=== PATIENT | male | born 1960 | race Caucasian/White ===

== ENCOUNTER 2017-02-10 05:42 | Inpatient (IN) | payer BC, OTHER ==
[2017-02-10] VITALS (18 sets, daily range): BP systolic 116–151; BP diastolic 60–86; PULSE 60–93; RESP 16–22; Ht 177.8 cm; Wt 100.7 kg
[~2017-02-10] VITALS: Ht 177.8 cm; Wt 100.7 kg
[~2017-02-10 05:42] MED LIST: ALBU8.5H3 INH; AMLO1TAB86 PO; SIMV5TAB50 PO
[2017-02-10] MEDS ORDERED: GLYCOPYRROLATE 1 MG INJ ONE (06:12)
[2017-02-10] MEDS ORDERED: PROPOFOL 20 ML ONE (06:12)
[2017-02-10] MEDS ORDERED: MIDAZOLAM 1 MG/ML 2 ML INJ ONE (06:12)
[2017-02-10] MEDS ORDERED: LIDOCAINE 2% (SDV) 5 ML INJ ONE (06:12)
[2017-02-10] MEDS ORDERED: ROCURONIUM 50 MG INJ ONE (06:12)
[2017-02-10] MEDS ORDERED: FENTAnyl 50 MCG/ML VIAL ONE (06:12)
[2017-02-10] MEDS ORDERED: NEOSTIGMINE 3 MG/3 ML SYRINGE ONE (06:12)
[2017-02-10] MEDS ORDERED: DEXAMETHASONE 4 MG/ML 1 ML INJ ONE (06:13)
[2017-02-10] MEDS ORDERED: SUGAMMADEX SODIUM 200 MG/2 ML VIAL IV ONE (06:13)
[2017-02-10] MEDS ORDERED: ONDANSETRON 4 MG INJ ONE (06:13)
[2017-02-10] MEDS ORDERED: ZOLP10TA PO (06:17)
[2017-02-10] MEDS ORDERED: LANS30CA PO (06:17)
[2017-02-10] MEDS ORDERED: AZEL205.2 NASAL (06:17)
[2017-02-10] MEDS ORDERED: GABA300C PO (06:17)
[2017-02-10] MEDS ORDERED: MELO-210 PO (06:17)
[2017-02-10] MEDS ORDERED: ROPIVACAINE 0.5 % 30 ML VIAL ONE ×2 (06:26→09:45)
[2017-02-10] MEDS ORDERED: CEFAZOLIN 1 GM INJ ONE ×2 (06:27→07:00)
[2017-02-10] MEDS ORDERED: ONDANSETRON 4 MG INJ IV PRN ×2 (06:30→07:00)
[2017-02-10] MEDS ORDERED: EPHEDrine SULFATE 50 MG/5 ML SYG IV PRN (06:30)
[2017-02-10] MEDS ORDERED: MIDAZOLAM 1 MG/ML 2 ML INJ IV PRN (06:30)
[2017-02-10] MEDS ORDERED: ATROPINE 1 MG/10 ML SYRINGE IV PRN (06:30)
[2017-02-10] MEDS ORDERED: LABETALOL HCL 20MG INJ IV PRN (06:30)
[2017-02-10] MEDS ORDERED: HYDROmorphONE (0.2 MG/ML) 10ML SYG IV PRN ×3 (06:30)
[2017-02-10] MEDS ORDERED: OXYCODONE/ACETAMINOPHEN (5/325) TAB PO PRN ×3 (06:30→07:00)
[2017-02-10] MEDS ORDERED: hydrALAzine 20 MG INJ IV PRN (06:30)
[2017-02-10] MEDS ORDERED: DIPHENHYDRAMINE 50 MG INJ IV PRN (06:30)
[2017-02-10] MEDS ORDERED: morphine (1 MG/ML) 10ML SYRINGE IV PRN ×3 (06:30)
[2017-02-10] MEDS ORDERED: MEPERIDINE 25 MG INJ IV PRN (06:30)
[2017-02-10] MEDS ORDERED: FENTAnyl 50 MCG/ML VIAL IV PRN ×2 (06:30)
--- NOTE | 2017-02-10 06:51 | HPN ---
Date/Time of Note Date/Time of Note DATE: 02/10/17 TIME: 06:51 Interval H&P Admission Note Pt. seen H&P reviewed: No system changes HAL OLEA MD Feb 10, 2017 06:51
[2017-02-10] MEDS: SOD CHLORIDE 0.9% 1,000 ML IV SCH ×3 (06:52→20:50)
[2017-02-10] MEDS ORDERED: SUCCINYLCHOLINE CHLORIDE 100 MG/5 ML SYG IV ONE (07:00)
[2017-02-10] MEDS ORDERED: morphine 10 MG INJ IV PRN (07:00)
[2017-02-10] MEDS ORDERED: DIPHENHYDRAMINE 25 MG CAP PO PRN (07:00)
[2017-02-10] MEDS ORDERED: CEFAZOLIN 1 GM INJ IV SCH (07:00)
[2017-02-10] MEDS ORDERED: BISACODYL 10 MG SUPP PR PRN (07:00)
[2017-02-10] MEDS: SENNA/DOCUSATE NA (8.6MG/50MG) TAB PO SCH ×2 (09:00→20:49)
[2017-02-10] MEDS ORDERED: POLYMYXIN/BACITRACIN 1L IRRIG ONE (09:45)
[2017-02-10] MEDS ORDERED: POVIDONE IODINE 10% 28.4 GM OINT ONE (09:45)
--- NOTE | 2017-02-10 11:52 | OPPN ---
Date/Time of Note Date/Time of Note DATE: 02/10/17 TIME: 11:51 Operative Report Preoperative Diagnosis Right Ankle Osteoarthritis Postoperative Diagnosis Same Operation/Procedure Performed Right ankle arthroscopic ankle fusion Surgeon Sagar Olea fire control assistant Luis Rivas Anesthesia: general Estimated blood loss: 10 - 50 ml's Transfusion Required none Specimen none Grafts/Implants none Complications none SAGAR OLEA MD Feb 10, 2017 11:52
--- NOTE | 2017-02-10 11:52 | OPPN ---
Date/Time of Note Date/Time of Note DATE: 02/10/17 TIME: 11:51 Operative Report Preoperative Diagnosis Right Ankle Osteoarthritis Postoperative Diagnosis Same Operation/Procedure Performed Right ankle arthroscopic ankle fusion Surgeon Sagar Olea kindergarten assistant Luis Rivas Anesthesia: general Estimated blood loss: 10 - 50 ml's Transfusion Required none Specimen none Grafts/Implants none Complications none SAGAR OLEA MD Feb 10, 2017 11:52
--- NOTE | 2017-02-10 11:52 | OPPN ---
Date/Time of Note Date/Time of Note DATE: 02/10/17 TIME: 11:51 Operative Report Preoperative Diagnosis Right Ankle Osteoarthritis Postoperative Diagnosis Same Operation/Procedure Performed Right ankle arthroscopic ankle fusion Surgeon Sagar Olea assistant pastry chef Luis Rivas Anesthesia: general Estimated blood loss: 10 - 50 ml's Transfusion Required none Specimen none Grafts/Implants none Complications none SAGAR OLEA MD Feb 10, 2017 11:52
[2017-02-10] MEDS: CEFAZOLIN 1 GM/50 ML (PMX) 50 ML IVPB SCH ×2 (12:40→18:49)
[2017-02-10] MEDS: HYDROmorphONE 0.2 MG/ML PCA IV SCH ×2 (12:43→12:44)
--- NOTE | 2017-02-10 16:01 | RADRPT ---
PROCEDURE: Intraoperative imaging of the right ankle with fluoroscopy. CLINICAL INDICATION: Right ankle pain. Intraoperative. TECHNIQUE: Four images of the right ankle were obtained in the operating room with an image intens ifier. No radiologist was in attendance. Fluoroscopy time is 0.6 minutes . COMPARISON: No prior study is available for comparison. FINDINGS: Surgical instruments are noted overlying the right ankle. Images demonstrate fusion with 2 cannulated screws traversing the distal tibia and fibula, extending into the talus. IMPRESSION: 1. Intraoperative imaging of the right ankle. RPTAT: QQ .Christian Paz MD, MD Date Time Electronically viewed and signed by .Christian Paz MD, on 02/10/2017 16:00 .R/
[2017-02-11 00:22] VITALS: BP 120/64; RESP 19
[2017-02-11] MEDS: CEFAZOLIN 1 GM/50 ML (PMX) 50 ML IVPB SCH ×2 (02:02→11:38)
--- NOTE | 2017-02-11 04:46 | OPR ---
DATE OF OPERATION: 02/10/2017 PREOPERATIVE DIAGNOSIS: Severe degenerative joint disease of the right ankle. POSTOPERATIVE DIAGNOSES: 1. Severe degenerative joint disease, right ankle. 2. Extensive fibrosis and synovitis. OPERATION PERFORMED: 1. Arthroscopy, right ankle, with soft tissue distraction. 2. Extensive debridement of the ankle and removal of all arthritic debris and surfaces. 3. Insertion of Ignite and augment bone graft supplement into the ankle. 4. Arthrodesis of the right ankle with two 7.3 AO cannulated screws. 5. Use of fluoroscopy to verify position and alignment of the screws and the position of the ankle. 6. Short-leg cast. SURGEON: Hal Olea MD. CHRISTMAS TREE GRADER: Luis Rivas MD. ANESTHESIA: General with popliteal block. TOURNIQUET TIME: 135 minutes. DESCRIPTION OF PROCEDURE: The patient taken to the operating room, placed in supine position. Sati sfactory popliteal block was given, satisfactory general anesthesia administered, 2 grams Ancef give n intravenously. The right thigh secured in the thigh hopper and was carefully padded and right leg was prepped and draped in usual manner. Superficial peroneal nerve was marked out. Standard anter omedial, anterolateral and posterolateral portals were used, using extreme caution. Extensive fibro sis and synovitis throughout the ankle. 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 Shaver was inserted and the medial gutter w as debrided. The soft tissue peeled off the distal tibia and spurs were removed with a bur along th e anterior distal tibia, lateral gutter and anterior gutters were debrided and the posterior gutters were debrided as well. A shaver and curettes were used to remove all articular cartilage off the t alus. A bur was used to remove approximately 1 mm of bone to get good bleeding surfaces throughout the entire talus. Multiple "spot welds" were made with the helga to facilitate bleeding. Multiple d rill holes were made with 0.062 K-wire to facilitate bleeding. After the talus was adequately prepa red, the tibia was prepared in the same way. The articular cartilage was removed with curettes and shaver. A helga was used to remove the appropriate amount of bone and then spot welds were made and the holes were drilled. The medial and lateral gutters were prepared in exactly the same way and th en the posterior gutter through the posterolateral portal was prepared the same way. After we had g ood bleeding surfaces throughout the entire ankle, it was time to put the screws in. The Micro Vector was inserted medially through the anteromedial portal with the appropriate angulati on. The skin was marked, incision made over the medial malleolus. Dissection carried down to subcu taneous tissue. The saphenous nerve and vein were moved out of the field. Guide pin was inserted f rom the 7.3 AO cannulated screw set approximately 30 degrees in the coronal and sagittal planes, but it did not penetrate through the tibia. Guide pin was then marked on the fibula, insertion was mad e through the previous incision. The dissection carried down to subcutaneous tissue. The peroneal sheath was opened, protected and guide pin was inserted in the posterolateral aspect of the fibula i n appropriate angle with the Micro Vector. AP and lateral radiographs and the fluoroscope was used to check, excellent position that was obtained. The wounds were then closed with 3-0 black nylon ex cept the medial wound. The medial wound was then used to insert the combination of Ignite and augme nt into the wound throughout the fusion site to facilitate healing. The wound was then closed anter omedially. Ankle was then placed in slight valgus and neutral dorsi and plantarflexion. Medial scr ew was advanced above the subtalar joint. It was measured, partially drilled and then a 7.3 AO josh ulated screw was inserted. Excellent fixation was obtained. The lateral screw was also measured, p artially drilled and then inserted. Excellent fixation was obtained as well. Final fluoroscopic vi ew showed good position and alignment of the screws and the subtalar joint was intact and the ankle was positioned appropriately. The tourniquet was then released, bleeders were coagulated, wounds ir rigated with antibiotic and wounds were closed with 3-0 undyed Vicryl and 3-0 and 4-0 black nylon. Compression dressing was applied after a saphenous nerve block done with 0.5% ropivacaine. Short-le g cast was then applied in neutral position. At the end of procedure, sponge and needle count was c orrect. The patient tolerated the procedure well and the cast was split in the recovery room. VOICE AND DATA TECHNICIAN ORTHOPEDIC SURGEON: During the procedure, an communications assistant orthopedic surgeon was used at my request. The communications assistant helped with distraction of the ankle. Also, the communications assistant cortically helped with inserting the guide pins while I held the ankle in appropriate position. The communications assistant then i nserted the screws while I held the ankle in appropriate position. Without a skilled orthopedic amy geon assisting me, this could not be done; therefore, should be compensated appropriately. Dictated By: HAL OLEA MD RF/ANNIE Conf#: [id number] DID#: [id number]
--- NOTE | 2017-02-11 04:46 | OPR ---
DATE OF OPERATION: 02/10/2017 PREOPERATIVE DIAGNOSIS: Severe degenerative joint disease of the right ankle. POSTOPERATIVE DIAGNOSES: 1. Severe degenerative joint disease, right ankle. 2. Extensive fibrosis and synovitis. OPERATION PERFORMED: 1. Arthroscopy, right ankle, with soft tissue distraction. 2. Extensive debridement of the ankle and removal of all arthritic debris and surfaces. 3. Insertion of Ignite and augment bone graft supplement into the ankle. 4. Arthrodesis of the right ankle with two 7.3 AO cannulated screws. 5. Use of fluoroscopy to verify position and alignment of the screws and the position of the ankle. 6. Short-leg cast. SURGEON: Hal Olea MD. POWDER BLENDER: Luis Rivas MD. ANESTHESIA: General with popliteal block. TOURNIQUET TIME: 135 minutes. DESCRIPTION OF PROCEDURE: The patient taken to the operating room, placed in supine position. Sati sfactory popliteal block was given, satisfactory general anesthesia administered, 2 grams Ancef give n intravenously. The right thigh secured in the thigh hopper and was carefully padded and right leg was prepped and draped in usual manner. Superficial peroneal nerve was marked out. Standard anter omedial, anterolateral and posterolateral portals were used, using extreme caution. Extensive fibro sis and synovitis throughout the ankle. 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 Shaver was inserted and the medial gutter w as debrided. The soft tissue peeled off the distal tibia and spurs were removed with a bur along th e anterior distal tibia, lateral gutter and anterior gutters were debrided and the posterior gutters were debrided as well. A shaver and curettes were used to remove all articular cartilage off the t alus. A bur was used to remove approximately 1 mm of bone to get good bleeding surfaces throughout the entire talus. Multiple "spot welds" were made with the helga to facilitate bleeding. Multiple d rill holes were made with 0.062 K-wire to facilitate bleeding. After the talus was adequately prepa red, the tibia was prepared in the same way. The articular cartilage was removed with curettes and shaver. A helga was used to remove the appropriate amount of bone and then spot welds were made and the holes were drilled. The medial and lateral gutters were prepared in exactly the same way and th en the posterior gutter through the posterolateral portal was prepared the same way. After we had g ood bleeding surfaces throughout the entire ankle, it was time to put the screws in. The Micro Vector was inserted medially through the anteromedial portal with the appropriate angulati on. The skin was marked, incision made over the medial malleolus. Dissection carried down to subcu taneous tissue. The saphenous nerve and vein were moved out of the field. Guide pin was inserted f rom the 7.3 AO cannulated screw set approximately 30 degrees in the coronal and sagittal planes, but it did not penetrate through the tibia. Guide pin was then marked on the fibula, insertion was mad e through the previous incision. The dissection carried down to subcutaneous tissue. The peroneal sheath was opened, protected and guide pin was inserted in the posterolateral aspect of the fibula i n appropriate angle with the Micro Vector. AP and lateral radiographs and the fluoroscope was used to check, excellent position that was obtained. The wounds were then closed with 3-0 black nylon ex cept the medial wound. The medial wound was then used to insert the combination of Ignite and augme nt into the wound throughout the fusion site to facilitate healing. The wound was then closed anter omedially. Ankle was then placed in slight valgus and neutral dorsi and plantarflexion. Medial scr ew was advanced above the subtalar joint. It was measured, partially drilled and then a 7.3 AO josh ulated screw was inserted. Excellent fixation was obtained. The lateral screw was also measured, p artially drilled and then inserted. Excellent fixation was obtained as well. Final fluoroscopic vi ew showed good position and alignment of the screws and the subtalar joint was intact and the ankle was positioned appropriately. The tourniquet was then released, bleeders were coagulated, wounds ir rigated with antibiotic and wounds were closed with 3-0 undyed Vicryl and 3-0 and 4-0 black nylon. Compression dressing was applied after a saphenous nerve block done with 0.5% ropivacaine. Short-le g cast was then applied in neutral position. At the end of procedure, sponge and needle count was c orrect. The patient tolerated the procedure well and the cast was split in the recovery room. CREW MANAGER ORTHOPEDIC SURGEON: During the procedure, an executive marketing assistant orthopedic surgeon was used at my request. The executive marketing assistant helped with distraction of the ankle. Also, the executive marketing assistant cortically helped with inserting the guide pins while I held the ankle in appropriate position. The executive marketing assistant then i nserted the screws while I held the ankle in appropriate position. Without a skilled orthopedic amy geon assisting me, this could not be done; therefore, should be compensated appropriately. Dictated By: HAL OLEA MD RF/ANNIE Conf#: [id number] DID#: [id number]
--- NOTE | 2017-02-11 04:46 | OPR ---
DATE OF OPERATION: 02/10/2017 PREOPERATIVE DIAGNOSIS: Severe degenerative joint disease of the right ankle. POSTOPERATIVE DIAGNOSES: 1. Severe degenerative joint disease, right ankle. 2. Extensive fibrosis and synovitis. OPERATION PERFORMED: 1. Arthroscopy, right ankle, with soft tissue distraction. 2. Extensive debridement of the ankle and removal of all arthritic debris and surfaces. 3. Insertion of Ignite and augment bone graft supplement into the ankle. 4. Arthrodesis of the right ankle with two 7.3 AO cannulated screws. 5. Use of fluoroscopy to verify position and alignment of the screws and the position of the ankle. 6. Short-leg cast. SURGEON: Hal Olea MD. GENERAL OFFICE ASSISTANT: Luis Rivas MD. ANESTHESIA: General with popliteal block. TOURNIQUET TIME: 135 minutes. DESCRIPTION OF PROCEDURE: The patient taken to the operating room, placed in supine position. Sati sfactory popliteal block was given, satisfactory general anesthesia administered, 2 grams Ancef give n intravenously. The right thigh secured in the thigh hopper and was carefully padded and right leg was prepped and draped in usual manner. Superficial peroneal nerve was marked out. Standard anter omedial, anterolateral and posterolateral portals were used, using extreme caution. Extensive fibro sis and synovitis throughout the ankle. 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 Shaver was inserted and the medial gutter w as debrided. The soft tissue peeled off the distal tibia and spurs were removed with a bur along th e anterior distal tibia, lateral gutter and anterior gutters were debrided and the posterior gutters were debrided as well. A shaver and curettes were used to remove all articular cartilage off the t alus. A bur was used to remove approximately 1 mm of bone to get good bleeding surfaces throughout the entire talus. Multiple "spot welds" were made with the helga to facilitate bleeding. Multiple d rill holes were made with 0.062 K-wire to facilitate bleeding. After the talus was adequately prepa red, the tibia was prepared in the same way. The articular cartilage was removed with curettes and shaver. A helga was used to remove the appropriate amount of bone and then spot welds were made and the holes were drilled. The medial and lateral gutters were prepared in exactly the same way and th en the posterior gutter through the posterolateral portal was prepared the same way. After we had g ood bleeding surfaces throughout the entire ankle, it was time to put the screws in. The Micro Vector was inserted medially through the anteromedial portal with the appropriate angulati on. The skin was marked, incision made over the medial malleolus. Dissection carried down to subcu taneous tissue. The saphenous nerve and vein were moved out of the field. Guide pin was inserted f rom the 7.3 AO cannulated screw set approximately 30 degrees in the coronal and sagittal planes, but it did not penetrate through the tibia. Guide pin was then marked on the fibula, insertion was mad e through the previous incision. The dissection carried down to subcutaneous tissue. The peroneal sheath was opened, protected and guide pin was inserted in the posterolateral aspect of the fibula i n appropriate angle with the Micro Vector. AP and lateral radiographs and the fluoroscope was used to check, excellent position that was obtained. The wounds were then closed with 3-0 black nylon ex cept the medial wound. The medial wound was then used to insert the combination of Ignite and augme nt into the wound throughout the fusion site to facilitate healing. The wound was then closed anter omedially. Ankle was then placed in slight valgus and neutral dorsi and plantarflexion. Medial scr ew was advanced above the subtalar joint. It was measured, partially drilled and then a 7.3 AO josh ulated screw was inserted. Excellent fixation was obtained. The lateral screw was also measured, p artially drilled and then inserted. Excellent fixation was obtained as well. Final fluoroscopic vi ew showed good position and alignment of the screws and the subtalar joint was intact and the ankle was positioned appropriately. The tourniquet was then released, bleeders were coagulated, wounds ir rigated with antibiotic and wounds were closed with 3-0 undyed Vicryl and 3-0 and 4-0 black nylon. Compression dressing was applied after a saphenous nerve block done with 0.5% ropivacaine. Short-le g cast was then applied in neutral position. At the end of procedure, sponge and needle count was c orrect. The patient tolerated the procedure well and the cast was split in the recovery room. FOOD SERVICE COUNTER CLERK ORTHOPEDIC SURGEON: During the procedure, an promotions assistant orthopedic surgeon was used at my request. The promotions assistant helped with distraction of the ankle. Also, the promotions assistant cortically helped with inserting the guide pins while I held the ankle in appropriate position. The promotions assistant then i nserted the screws while I held the ankle in appropriate position. Without a skilled orthopedic amy geon assisting me, this could not be done; therefore, should be compensated appropriately. Dictated By: HAL OLEA MD RF/ANNIE Conf#: [id number] DID#: [id number]
[2017-02-11] MEDS: HYDROmorphONE 0.2 MG/ML PCA IV SCH (04:57)
[2017-02-11 05:30] VITALS: BP 129/67; PULSE 69; RESP 20
--- NOTE | 2017-02-11 06:33 | PN ---
Date/Time of Note Date/Time of Note DATE: 02/11/17 TIME: 06:28 Assessment/Plan VTE Prophylaxis VTE Prophylaxis Intervention: other Lines/Catheters IV Catheter Type (from Nrsg): Peripheral IV Urinary Cath still in place: No Assessment/Plan Assessment/Plan 56M s/p R ankle fusion Pain Control DVT prophylaxis RLE NWB, PT Discharge planning Subjective 24 Hr Interval Summary Free Text/Dictation pt feeling well, reports that the block wore off and he has begun having some pain, but it is manageable. He has not yet taken any oral analgesic medication, and has been using the SHAPER SET UP OPERATOR Exam/Review of Systems Vital Signs Vitals Vital Signs Date Time Temp Pulse Resp B/P Pulse Ox O2 Delivery O2 Flow Rate FiO2 02/11/17 05:30 98.2 69 20 129/67 96 02/10/17 15:45 Room Air Intake and Output 02/10/17 02/10/17 02/11/17 15:00 23:00 07:00 Intake Total 1550 ml 800 ml 1100 ml Output Total 60 ml 600 ml 850 ml Balance 1490 ml 200 ml 250 ml Exam Constitutional: alert, oriented, well developed Psych: nl mood/affect, no complaints Head: atraumatic, normocephalic Eyes: EOMI, PERRL, nl conjunctiva, nl lids, nl sclera ENMT: nl external ears & nose, nl lips & teeth, nl nasal mucosa & septum Neck: non-tender, supple Respiratory: clear to auscultation, normal air movement Cardiovascular: nl pulses, regular rate and rhythm Gastrointestinal: nl liver, spleen, non-tender, soft Musculoskeletal: nl extremities to inspection, nl gait and stance Extremities: normal pulses Neurological: STARS COORDINATOR II-XII intact, nl mental status, nl speech, nl strength Skin: nl turgor, No rash or lesions Lymph: nl lymph nodes Results A&Ox3 NAD RLE elevated, cast intact wiggles toes sensation intact Medications Medications Current Medications Senna/Docusate Sodium (Senokot-S) 1 tab BID PO Last administered on 02/10/17t 20:49; Admin Dose 1 TAB; Start 02/10/17 at 09:00 Magnesium Hydroxide (Milk Of Mag) 30 ml HS PO ; Start 02/12/17 at 21:00 Bisacodyl 10 mg 10 mg DAILY PRN TN CONSTIPATION; Start 02/10/17 at 07:00 Sodium Chloride (NS) 1,000 ml @ 100 mls/hr Q10H IV Last administered on 20:50; Admin Dose 100 MLS/HR; Start 02/10/17 at 06:52 Oxycodone/ Acetaminophen (Percocet (5/ 325)) 2 tab Q4H PRN PO PAIN; Start at 07:00 Morphine Sulfate (morphine) 5 mg Q4H PRN IV PAIN LEVEL 7-10; Start 02/10/17 at 07:00 Ondansetron HCl (Zofran Inj) 4 mg Q4H PRN IV NAUSEA AND/OR VOMITING Last administered on 02/10/17 14:22; Admin Dose 4 MG; Start 02/10/17 at 07:00 Diphenhydramine HCl (Benadryl) 25 mg Q4H PRN PO ITCHING; Start 02/10/17 at 07: 00 Hydromorphone HCl MG/HR CONTINUOUS RATE ... Q4PCA IV Last administered on 02/11 04:57; Admin Dose 6 MG; Start 02/10/17 at 09:00 Cefazolin Sodium (Ancef 1 Gm/50 ml (Pmx)) 50 ml @ 100 mls/hr Q8H IVPB Last administered on 02/11/17 02:02; Admin Dose 100 MLS/HR; Start 02/10/17 at 11: 00; Stop 02/12/17 at 03:29 HAL OLEA MD Feb 11, 2017 06:33
--- NOTE | 2017-02-11 06:33 | PN ---
Date/Time of Note Date/Time of Note DATE: 02/11/17 TIME: 06:28 Assessment/Plan VTE Prophylaxis VTE Prophylaxis Intervention: other Lines/Catheters IV Catheter Type (from Nrsg): Peripheral IV Urinary Cath still in place: No Assessment/Plan Assessment/Plan 56M s/p R ankle fusion Pain Control DVT prophylaxis RLE NWB, PT Discharge planning Subjective 24 Hr Interval Summary Free Text/Dictation pt feeling well, reports that the block wore off and he has begun having some pain, but it is manageable. He has not yet taken any oral analgesic medication, and has been using the REGISTER REPAIRER Exam/Review of Systems Vital Signs Vitals Vital Signs Date Time Temp Pulse Resp B/P Pulse Ox O2 Delivery O2 Flow Rate FiO2 02/11/17 05:30 98.2 69 20 129/67 96 02/10/17 15:45 Room Air Intake and Output 02/10/17 02/10/17 02/11/17 15:00 23:00 07:00 Intake Total 1550 ml 800 ml 1100 ml Output Total 60 ml 600 ml 850 ml Balance 1490 ml 200 ml 250 ml Exam Constitutional: alert, oriented, well developed Psych: nl mood/affect, no complaints Head: atraumatic, normocephalic Eyes: EOMI, PERRL, nl conjunctiva, nl lids, nl sclera ENMT: nl external ears & nose, nl lips & teeth, nl nasal mucosa & septum Neck: non-tender, supple Respiratory: clear to auscultation, normal air movement Cardiovascular: nl pulses, regular rate and rhythm Gastrointestinal: nl liver, spleen, non-tender, soft Musculoskeletal: nl extremities to inspection, nl gait and stance Extremities: normal pulses Neurological: WATER CONSERVATIONIST II-XII intact, nl mental status, nl speech, nl strength Skin: nl turgor, No rash or lesions Lymph: nl lymph nodes Results A&Ox3 NAD RLE elevated, cast intact wiggles toes sensation intact Medications Medications Current Medications Senna/Docusate Sodium (Senokot-S) 1 tab BID PO Last administered on 02/10/17t 20:49; Admin Dose 1 TAB; Start 02/10/17 at 09:00 Magnesium Hydroxide (Milk Of Mag) 30 ml HS PO ; Start 02/12/17 at 21:00 Bisacodyl 10 mg 10 mg DAILY PRN [place] CONSTIPATION; Start 02/10/17 at 07:00 Sodium Chloride (NS) 1,000 ml @ 100 mls/hr Q10H IV Last administered on 20:50; Admin Dose 100 MLS/HR; Start 02/10/17 at 06:52 Oxycodone/ Acetaminophen (Percocet (5/ 325)) 2 tab Q4H PRN PO PAIN; Start at 07:00 Morphine Sulfate (morphine) 5 mg Q4H PRN IV PAIN LEVEL 7-10; Start 02/10/17 at 07:00 Ondansetron HCl (Zofran Inj) 4 mg Q4H PRN IV NAUSEA AND/OR VOMITING Last administered on 02/10/17 14:22; Admin Dose 4 MG; Start 02/10/17 at 07:00 Diphenhydramine HCl (Benadryl) 25 mg Q4H PRN PO ITCHING; Start 02/10/17 at 07: 00 Hydromorphone HCl MG/HR CONTINUOUS RATE ... Q4PCA IV Last administered on 02/11 04:57; Admin Dose 6 MG; Start 02/10/17 at 09:00 Cefazolin Sodium (Ancef 1 Gm/50 ml (Pmx)) 50 ml @ 100 mls/hr Q8H IVPB Last administered on 02/11/17 02:02; Admin Dose 100 MLS/HR; Start 02/10/17 at 11: 00; Stop 02/12/17 at 03:29 HAL OLEA MD Feb 11, 2017 06:33
--- NOTE | 2017-02-11 06:33 | PN ---
Date/Time of Note Date/Time of Note DATE: 02/11/17 TIME: 06:28 Assessment/Plan VTE Prophylaxis VTE Prophylaxis Intervention: other Lines/Catheters IV Catheter Type (from Nrsg): Peripheral IV Urinary Cath still in place: No Assessment/Plan Assessment/Plan 56M s/p R ankle fusion Pain Control DVT prophylaxis RLE NWB, PT Discharge planning Subjective 24 Hr Interval Summary Free Text/Dictation pt feeling well, reports that the block wore off and he has begun having some pain, but it is manageable. He has not yet taken any oral analgesic medication, and has been using the SOLUTION ARCHITECT Exam/Review of Systems Vital Signs Vitals Vital Signs Date Time Temp Pulse Resp B/P Pulse Ox O2 Delivery O2 Flow Rate FiO2 02/11/17 05:30 98.2 69 20 129/67 96 02/10/17 15:45 Room Air Intake and Output 02/10/17 02/10/17 02/11/17 15:00 23:00 07:00 Intake Total 1550 ml 800 ml 1100 ml Output Total 60 ml 600 ml 850 ml Balance 1490 ml 200 ml 250 ml Exam Constitutional: alert, oriented, well developed Psych: nl mood/affect, no complaints Head: atraumatic, normocephalic Eyes: EOMI, PERRL, nl conjunctiva, nl lids, nl sclera ENMT: nl external ears & nose, nl lips & teeth, nl nasal mucosa & septum Neck: non-tender, supple Respiratory: clear to auscultation, normal air movement Cardiovascular: nl pulses, regular rate and rhythm Gastrointestinal: nl liver, spleen, non-tender, soft Musculoskeletal: nl extremities to inspection, nl gait and stance Extremities: normal pulses Neurological: NETWORK SOLUTIONS ARCHITECT II-XII intact, nl mental status, nl speech, nl strength Skin: nl turgor, No rash or lesions Lymph: nl lymph nodes Results A&Ox3 NAD RLE elevated, cast intact wiggles toes sensation intact Medications Medications Current Medications Senna/Docusate Sodium (Senokot-S) 1 tab BID PO Last administered on 02/10/17t 20:49; Admin Dose 1 TAB; Start 02/10/17 at 09:00 Magnesium Hydroxide (Milk Of Mag) 30 ml HS PO ; Start 02/12/17 at 21:00 Bisacodyl 10 mg [address] CONSTIPATION; Start 02/10/17 at 07:00 Sodium Chloride (NS) 1,000 ml @ 100 mls/hr Q10H IV Last administered on 20:50; Admin Dose 100 MLS/HR; Start 02/10/17 at 06:52 Oxycodone/ Acetaminophen (Percocet (5/ 325)) 2 tab Q4H PRN PO PAIN; Start at 07:00 Morphine Sulfate (morphine) 5 mg Q4H PRN IV PAIN LEVEL 7-10; Start 02/10/17 at 07:00 Ondansetron HCl (Zofran Inj) 4 mg Q4H PRN IV NAUSEA AND/OR VOMITING Last administered on 02/10/17 14:22; Admin Dose 4 MG; Start 02/10/17 at 07:00 Diphenhydramine HCl (Benadryl) 25 mg Q4H PRN PO ITCHING; Start 02/10/17 at 07: 00 Hydromorphone HCl MG/HR CONTINUOUS RATE ... Q4PCA IV Last administered on 02/11 04:57; Admin Dose 6 MG; Start 02/10/17 at 09:00 Cefazolin Sodium (Ancef 1 Gm/50 ml (Pmx)) 50 ml @ 100 mls/hr Q8H IVPB Last administered on 02/11/17 02:02; Admin Dose 100 MLS/HR; Start 02/10/17 at 11: 00; Stop 02/12/17 at 03:29 HAL OLEA MD Feb 11, 2017 06:33
[2017-02-11] MEDS ORDERED: RIVA10TA PO (06:47)
[2017-02-11 07:53] VITALS: BP 129/68; RESP 18
[2017-02-11] MEDS: SENNA/DOCUSATE NA (8.6MG/50MG) TAB PO SCH (10:48)
[2017-02-11] MEDS ORDERED: RIVAROXABAN 10 MG TABLET PO SCH (17:55)
[2017-02-12] MEDS ORDERED: MAGNESIUM HYDROXIDE 30ML CUP PO SCH (21:00)
--- NOTE | 2017-02-13 04:48 | DS ---
DATE OF ADMISSION: 02/10/2017 DATE OF DISCHARGE: 02/11/2017 DISCHARGE DIAGNOSIS: Degenerative joint disease, severe, right ankle. SURGERY: On 02/10/2017, arthroscopy of the right ankle with extensive debridement and arthrodesis w ith screws. HISTORY OF PRESENT ILLNESS: The patient is a 56-year-old male with a long history of injuries to hi s right ankle gone on to arthritis, admitted now for arthroscopic arthrodesis. PAST MEDICAL HISTORY: See the history and physical record. PHYSICAL EXAMINATION: Normal except the orthopedic exam which revealed severe pain in the ankle wit h decreased range of motion and strength. LABORATORY DATA: Normal was clear. EKG was stable. HOSPITAL COURSE: Patient was cleared medically, taken to the operating room, underwent above-mentio antonia procedure. Postoperatively, he was up ambulating, nonweightbearing the first postoperative day and will be discharged on pain medication and antibiotics, to be followed in the office in 1 week. Dictated By: HAL ADAMS/ANNIE Conf#: [id number] DID#: [id number]
== END 2017-02-11 15:07 | disposition home or self-care (01) | DRG 494 ==
LOC: SDS 05:42 → REC 06:52 → MS1 12:54
PROVIDERS: ADMIT Orthopaedic Surgery; ATTEND Orthopaedic Surgery
PROC: 0SG Lower Joints, Fusion (ICD-10-PCS; principal; 2017-02-10 07:00)
DX: M19.071 Primary osteoarthritis, right ankle and foot (principal)
CPT/HCPCS: 81001; 97163; C1713; J0690; J1100; J1170; J2250; J2405; J2710; J2795; J3010; J7030